=== PATIENT | male | born 1980 | race Two or more races ===

== ENCOUNTER 2022-02-15 17:22 | Inpatient (IN) | payer OTHER ==
[2022-02-15 22:37] VITALS: BMI 22.3
[2022-02-15] MEDS ORDERED: P-EPHED 60MG/TRIPROLIDI 2.5MG TABLET PO PRN (23:45)
[2022-02-15] MEDS ORDERED: NALOXONE HCL (KLOXXADO) 8 MG SPRAY NS PRN (23:45)
[2022-02-15] MEDS ORDERED: ACETAMINOPHEN 325 MG TABLET (FP) PO PRN ×2 (23:45)
[2022-02-15] MEDS ORDERED: hydrOXYzine PAMOATE 25 MG CAPSULE (FP) PO PRN (23:45)
[2022-02-15] MEDS ORDERED: MAGNESIUM HYDROX 2400MG/30ML ORAL SUSPENSION 30 ML CUP PO PRN (23:45)
[2022-02-15] MEDS ORDERED: POLYETHYLENE GLYCOL (HEALTHYLAX) 3350 17 GM PACKET PO PRN (23:45)
[2022-02-15] MEDS ORDERED: MAG HYDROX/AL HYDROX/SIMETH 30 ML UNIT-DOSE CUP PO PRN (23:45)
[2022-02-15] MEDS ORDERED: BISMUTH SUBSALICYLATE 524 MG/30 ML PO PRN (23:45)
[2022-02-15] MEDS ORDERED: guaiFENesin 200 MG/10 ML 10 ML UNIT-DOSE CUPS PO PRN (23:45)
[2022-02-15] MEDS ORDERED: LOPERAMIDE HCL 2 MG CAPSULE PO PRN (23:45)
[2022-02-15] MEDS ORDERED: IBUPROFEN 600 MG TABLET (FP) PO PRN (23:45)
[2022-02-15] MEDS ORDERED: NICOTINE POLACRILEX 2 MG GUM BUC PRN (23:45)
[2022-02-15] MEDS ORDERED: NALOXONE HCL 0.4 MG/ML VIAL IM PRN (23:45)
[2022-02-15] MEDS ORDERED: DICYCLOMINE HCL 10 MG CAPSULE PO PRN (23:45)
[2022-02-15] MEDS ORDERED: ONDANSETRON *ODT* 4 MG TABLET SL PRN (23:45)
[2022-02-15] MEDS ORDERED: MELATONIN 5 MG TABLETS PO PRN (23:45)
[2022-02-15] MEDS ORDERED: IBUPROFEN 400 MG TABLET (FP) PO PRN (23:45)
[2022-02-15] MEDS ORDERED: BENZOCAINE/MENTHOL (CHLORASEPTIC ) LOZENGE MM PRN (23:45)
[2022-02-15] MEDS ORDERED: NICOTINE 10 MG CARTRIDGE (INHALER) IH PRN (23:45)
[2022-02-16] MEDS ORDERED: methaDONE HCL 10 MG TABLET (FOR DETOX USE ONLY) PO ONE ×2 (00:01→01:45)
[2022-02-16] MEDS ORDERED: diazePAM 5 MG TABLET PO PRN (00:01)
[2022-02-16] MEDS ORDERED: cloNIDine HCL 0.1 MG TABLET PO PRN (00:01)
[2022-02-16] MEDS: diazePAM 5 MG TABLET PO SCH ×3 (05:53→18:21)
[2022-02-16 09:43] LABS: HEMATOCRIT 40.7 % (35.4-49); HEMOGLOBIN 13.2 GM/dL (11.7-16.9); MCH 28.8 pg (25.7-33.7); MCHC 32.3 g/dl (32.0-35.9); MEAN CELL VOLUME 89.1 fl (80-96); MEAN PLT VOLUME 10.5 fl (7.5-11.1); PLATELET COUNT 289 10^3/uL (134-434); RBC 4.57 M/mm3 (4.00-5.60); RDW 14.7 % (11.9-15.9); WHITE BLOOD COUNT 4.5 K/mm3 (4.0-10.0)
[2022-02-16 09:44] LABS: ALBUMIN 3.3 g/dl (3.4-5.0); CALCIUM 9.4 mg/dL (8.5-10.1)
[2022-02-16 09:48] LABS: CREATININE 0.7 mg/dL (0.55-1.3)
[2022-02-16 09:49] LABS: BILIRUBIN,TOTAL 0.8 mg/dL (0.2-1); TOT PROT 7.3 g/dl (6.4-8.2)
[2022-02-16] MEDS: METHOCARBAMOL 500 MG TABLET PO PRN (10:19)
[2022-02-16] MEDS: PRENATAL VITAMINS W/ FOLIC ACID TABLET (FP) PO SCH (10:20)
[2022-02-16] MEDS ORDERED: THIAMINE HCL 100 MG TABLET (FP) PO SCH (22:00)
[2022-02-17] MEDS: diazePAM 5 MG TABLET PO SCH (00:04)
[2022-02-17] MEDS ORDERED: diazePAM 5 MG TABLET PO SCH (06:00)
[2022-02-17] MEDS ORDERED: methaDONE HCL 10 MG TABLET (FOR DETOX USE ONLY) PO ONE (10:00)
[2022-02-17] MEDS: PRENATAL VITAMINS W/ FOLIC ACID TABLET (FP) PO SCH (10:11)
[2022-02-17] MEDS: METHOCARBAMOL 500 MG TABLET PO PRN (10:11)
[2022-02-17 13:36] VITALS: BP 112/61; PULSE 78; RESP 18; TEMP 97.8
[2022-02-18] MEDS ORDERED: diazePAM 5 MG TABLET PO SCH (06:00)
[2022-02-19] MEDS ORDERED: diazePAM 5 MG TABLET PO ONE (06:00)
[2022-02-19] MEDS ORDERED: methaDONE HCL 10 MG TABLET (FOR DETOX USE ONLY) PO ONE (10:00)
== END 2022-02-17 13:34 | disposition left against medical advice (07) | DRG 770 ==
LOC: YASAS 17:22 → Y6N 23:37
PROVIDERS: ADMIT Allergy & Immunology; ATTEND Surgery
PROC: HZ2ZZZZ Detoxification Services for Substance Abuse Treatment (ICD-10-PCS; principal; 2022-02-15)
DX: F11.23 Opioid dependence with withdrawal (principal); F10.230 Alcohol dependence with withdrawal, uncomplicated; F14.20 Cocaine dependence, uncomplicated; F13.20 Sedative, hypnotic or anxiolytic dependence, uncomplicated; F12.20 Cannabis dependence, uncomplicated; F17.210 Nicotine dependence, cigarettes, uncomplicated; Z86.69 Personal history of other diseases of the nervous system and sense organs; Z59.00 Homelessness unspecified
CPT/HCPCS: 36415; 80053; 85027; 86780; 93005; 93010; C9803-CS; U0003; U0005

== ENCOUNTER 2023-05-19 13:36 | Inpatient (IN) | payer OTHER ==
[2023-05-19 14:56] VITALS: BMI 23.4
[2023-05-19] MEDS ORDERED: guaiFENesin 600 MG TABLET.ER (FP) PO PRN (15:44)
[2023-05-19] MEDS ORDERED: ACETAMINOPHEN 325 MG TABLET (FP) PO PRN (15:44)
[2023-05-19] MEDS ORDERED: ONDANSETRON *ODT* 4 MG TABLET SL PRN (15:44)
[2023-05-19] MEDS ORDERED: MAG HYDROX/AL HYDROX/SIMETH 30 ML UNIT-DOSE CUP PO PRN (15:44)
[2023-05-19] MEDS ORDERED: BENZONATATE 200 MG CAPSULE PO PRN (15:44)
[2023-05-19] MEDS ORDERED: IBUPROFEN 400 MG TABLET (FP) PO PRN (15:44)
[2023-05-19] MEDS ORDERED: MAGNESIUM HYDROX 2400MG/30ML ORAL SUSPENSION 30 ML CUP PO PRN (15:44)
[2023-05-19] MEDS ORDERED: BISMUTH SUBSALICYLATE 524 MG/30 ML PO PRN (15:44)
[2023-05-19] MEDS ORDERED: POLYETHYLENE GLYCOL (HEALTHYLAX) 3350 17 GM PACKET PO PRN (15:44)
[2023-05-19] MEDS ORDERED: LOPERAMIDE HCL 2 MG CAPSULE PO PRN (15:44)
[2023-05-19] MEDS ORDERED: BENZOCAINE/MENTHOL (CHLORASEPTIC ) LOZENGE MM PRN (15:44)
[2023-05-19] MEDS ORDERED: DICYCLOMINE HCL 10 MG CAPSULE PO PRN (15:44)
[2023-05-19] MEDS ORDERED: NALOXONE HCL (KLOXXADO) 8 MG SPRAY NS PRN (15:44)
[2023-05-19] MEDS ORDERED: NALOXONE HCL 0.4 MG/ML VIAL IM PRN (15:44)
[2023-05-19] MEDS ORDERED: chlordiazePOXIDE HCL 25 MG CAPSULE PO PRN (15:44)
[2023-05-19] MEDS: PRENATAL VITAMINS W/ FOLIC ACID TABLET (FP) PO SCH (16:35)
[2023-05-19] MEDS: METHOCARBAMOL 500 MG TABLET PO PRN (16:35)
[2023-05-19] MEDS: chlordiazePOXIDE HCL 25 MG CAPSULE PO SCH (16:36)
[2023-05-19] MEDS ORDERED: chlordiazePOXIDE HCL 25 MG CAPSULE ONE (16:42)
[2023-05-19] MEDS ORDERED: METHOCARBAMOL 500 MG TABLET ONE (16:44)
[2023-05-19] MEDS ORDERED: PRENATAL VITAMINS W/ FOLIC ACID TABLET (FP) PO ONE (16:45)
[2023-05-19] MEDS ORDERED: BACITRACIN ZINC 15 GM TUBE TOPICAL OINTMENT TP SCH (22:00)
[2023-05-19] MEDS: BUPRENORPHINE/NALOXONE 8 MG/2 MG FILM PACKET SL SCH (22:33)
[2023-05-19] MEDS: BACITRACIN 0.9 GM PACKET TP SCH (22:34)
[2023-05-19] MEDS: THIAMINE HCL 100 MG TABLET (FP) PO SCH (22:34)
[2023-05-19] MEDS: MELATONIN 5 MG TABLETS PO SCH (22:35)
[2023-05-20] MEDS: NICOTINE 14 MG/24 HOURS TOPICAL PATCH TD SCH (10:21)
[2023-05-20 11:08] LABS: HEMATOCRIT 35.4 % (35.4-49); HEMOGLOBIN 11.6 GM/dL (11.7-16.9); MCH 30.8 pg (25.7-33.7); MCHC 32.6 g/dl (32.0-35.9); MEAN CELL VOLUME 94.5 fl (80-96); MEAN PLT VOLUME 10.2 fl (7.5-11.1); PLATELET COUNT 152 10^3/uL (134-434); RBC 3.75 M/mm3 (4.00-5.60); RDW 13.1 % (11.9-15.9); WHITE BLOOD COUNT 5.1 K/mm3 (4.0-10.0)
[2023-05-20] MEDS: FLU VACCINE (FLULAVAL) PF 60 MCG/0.5 ML SYRINGE 2023-2024 IM ONE (11:09)
[2023-05-20 12:18] LABS: CHLORIDE 111 mmol/L (98-107); POTASSIUM 3.7 mmol/L (3.5-5.1); SODIUM 144 mmol/L (136-145)
[2023-05-20 12:26] LABS: ALBUMIN 2.9 g/dl (3.4-5.0); ANION GAP 5 mmol/L (4-13); BLOOD UREA NITROGEN 14.7 mg/dL (7-18); CO2 28 mmol/L (21-32); CREATININE 0.7 mg/dL (0.55-1.3); GLUCOSE,RANDOM 122 mg/dL (74-106); SGPT/ALT 26 U/L (13-61)
[2023-05-20 12:27] LABS: CALCIUM 8.5 mg/dL (8.5-10.1)
[2023-05-20 12:28] LABS: BILIRUBIN,TOTAL 0.2 mg/dL (0.2-1); TOT PROT 5.8 g/dl (6.4-8.2)
[2023-05-20 12:29] LABS: ALK PHOS 78 U/L (45-117); SGOT/AST 17 U/L (15-37)
[2023-05-20 12:59] LABS: HIV INTERPRETATION NEGATIVE (NEGATIVE)
[2023-05-21] MEDS: chlordiazePOXIDE HCL 25 MG CAPSULE PO SCH (05:50)
[2023-05-22] MEDS ORDERED: chlordiazePOXIDE HCL 10 MG CAPSULE PO PRN
[2023-05-22] MEDS: chlordiazePOXIDE HCL 10 MG CAPSULE PO SCH (05:50)
[2023-05-22] MEDS: IBUPROFEN 600 MG TABLET (FP) PO PRN (16:39)
[2023-05-22] MEDS: hydrOXYzine PAMOATE 25 MG CAPSULE (FP) PO PRN (17:14)
[2023-05-23] MEDS: chlordiazePOXIDE HCL 10 MG CAPSULE PO SCH (05:34)
[2023-05-23 12:36] VITALS: BP 108/63; PULSE 86; RESP 17; TEMP 97.7
[2023-05-24] MEDS ORDERED: chlordiazePOXIDE HCL 10 MG CAPSULE PO ONE (05:00)
== END 2023-05-23 14:45 | disposition home or self-care (01) | DRG 773 ==
LOC: YASAS 13:36 → Y6N 17:11
PROVIDERS: ADMIT Allergy & Immunology; ATTEND Surgery
PROC: HZ2ZZZZ Detoxification Services for Substance Abuse Treatment (ICD-10-PCS; principal; 2023-05-19)
DX: F10.230 Alcohol dependence with withdrawal, uncomplicated (principal); F11.20 Opioid dependence, uncomplicated; F14.20 Cocaine dependence, uncomplicated; F12.20 Cannabis dependence, uncomplicated; F17.210 Nicotine dependence, cigarettes, uncomplicated; F33.1 Major depressive disorder, recurrent, moderate; F19.24 Other psychoactive substance dependence with psychoactive substance-induced mood disorder; R73.03 Prediabetes; Z86.19 Personal history of other infectious and parasitic diseases
CPT/HCPCS: 36415; 80053; 80305; 80307; 82947; 85027; 86780; 87389; 87635; 90686; 93005; 93010; G0008

== ENCOUNTER 2023-11-24 16:23 | Inpatient (IN) | payer OTHER ==
[2023-11-24 17:13] VITALS: BMI 25.1
[2023-11-24] MEDS ORDERED: BENZOCAINE/MENTHOL (CHLORASEPTIC ) LOZENGE MM PRN (20:49)
[2023-11-24] MEDS ORDERED: NICOTINE POLACRILEX 2 MG LOZENGE BC PRN (20:49)
[2023-11-24] MEDS ORDERED: NICOTINE POLACRILEX 2 MG GUM BUC PRN (20:49)
[2023-11-24] MEDS ORDERED: NALOXONE (NARCAN) HCL 4 MG/0.1 ML SPRAY NS PRN (20:49)
[2023-11-24] MEDS ORDERED: P-EPHED 60MG/TRIPROLIDI 2.5MG TABLET PO PRN (20:49)
[2023-11-24] MEDS ORDERED: IBUPROFEN 400 MG TABLET (FP) PO PRN (20:49)
[2023-11-24] MEDS ORDERED: IBUPROFEN 600 MG TABLET (FP) PO PRN (20:49)
[2023-11-24] MEDS ORDERED: BENZONATATE 200 MG CAPSULE PO PRN (20:49)
[2023-11-24] MEDS ORDERED: LOPERAMIDE HCL 2 MG CAPSULE PO PRN (20:49)
[2023-11-24] MEDS ORDERED: NALOXONE HCL 0.4 MG/ML VIAL IM PRN (20:49)
[2023-11-24] MEDS ORDERED: guaiFENesin 600 MG TABLET.ER (FP) PO PRN (20:49)
[2023-11-24] MEDS ORDERED: BISMUTH SUBSALICYLATE 524 MG/30 ML PO PRN (20:49)
[2023-11-24] MEDS ORDERED: POLYETHYLENE GLYCOL (HEALTHYLAX) 3350 17 GM PACKET PO PRN (20:49)
[2023-11-24] MEDS ORDERED: MAGNESIUM HYDROX 2400MG/30ML ORAL SUSPENSION 30 ML CUP PO PRN (20:49)
[2023-11-24] MEDS ORDERED: ONDANSETRON *ODT* 4 MG TABLET SL PRN (20:49)
[2023-11-24] MEDS ORDERED: MAG HYDROX/AL HYDROX/SIMETH 30 ML UNIT-DOSE CUP PO PRN (20:49)
[2023-11-24] MEDS ORDERED: ACETAMINOPHEN 325 MG TABLET (FP) PO PRN (20:49)
[2023-11-24] MEDS ORDERED: DICYCLOMINE HCL 10 MG CAPSULE PO PRN (20:49)
[2023-11-24] MEDS: THIAMINE 100 MG TABLET PO SCH (22:08)
[2023-11-24] MEDS: MELATONIN 5 MG TABLETS PO SCH (22:08)
[2023-11-25] MEDS: hydrOXYzine PAMOATE 25 MG CAPSULE (FP) PO PRN (01:29)
[2023-11-25] MEDS: METHOCARBAMOL 500 MG TABLET PO PRN (01:29)
[2023-11-25] MEDS: PRENATAL VITAMINS W/ FOLIC ACID TABLET (FP) PO SCH (10:45)
[2023-11-25 11:17] LABS: CHLORIDE 109 mmol/L (98-107); POTASSIUM 3.6 mmol/L (3.5-5.1); SODIUM 142 mmol/L (136-145)
[2023-11-25 11:18] LABS: HEMATOCRIT 33.1 % (35.4-49); HEMOGLOBIN 10.9 GM/dL (11.7-16.9); MCH 30.7 pg (25.7-33.7); MCHC 32.9 g/dl (32.0-35.9); MEAN CELL VOLUME 93.1 fl (80-96); MEAN PLT VOLUME 10.2 fl (7.5-11.1); PLATELET COUNT 149 10^3/uL (134-434); RBC 3.55 M/mm3 (4.00-5.60); RDW 13.6 % (11.9-15.9); WHITE BLOOD COUNT 4.8 K/mm3 (4.0-10.0)
[2023-11-25 11:24] LABS: CALCIUM 8.9 mg/dL (8.5-10.1)
[2023-11-25 11:25] LABS: ALBUMIN 3.7 g/dl (3.4-5.0); ANION GAP 7 mmol/L (4-13); BLOOD UREA NITROGEN 14.2 mg/dL (7-18); CO2 26 mmol/L (21-32); GLUCOSE,RANDOM 92 mg/dL (74-106)
[2023-11-25 11:28] LABS: CREATININE 0.8 mg/dL (0.55-1.3); SGOT/AST 26 U/L (15-37); SGPT/ALT 26 U/L (13-61)
[2023-11-25 11:29] LABS: BILIRUBIN,TOTAL 0.6 mg/dL (0.2-1)
[2023-11-25 11:30] LABS: TOT PROT 6.6 g/dl (6.4-8.2)
[2023-11-25 11:31] LABS: ALK PHOS 49 U/L (45-117)
[2023-11-25] MEDS: QUEtiapine FUMARATE 50 MG TABLET PO SCH (22:01)
[2023-11-26 09:16] VITALS: BP 116/72; PULSE 68; RESP 16; TEMP 97.7
== END 2023-11-26 13:43 | disposition home or self-care (01) | DRG 773 ==
LOC: YASAS 16:23 → Y6N 21:21
PROVIDERS: ADMIT Allergy & Immunology; ATTEND Family Medicine Addiction Medicine
PROC: HZ2ZZZZ Detoxification Services for Substance Abuse Treatment (ICD-10-PCS; principal; 2023-11-24)
DX: F11.20 Opioid dependence, uncomplicated (principal); F14.20 Cocaine dependence, uncomplicated; F10.20 Alcohol dependence, uncomplicated; F13.20 Sedative, hypnotic or anxiolytic dependence, uncomplicated; F17.210 Nicotine dependence, cigarettes, uncomplicated; F19.282 Other psychoactive substance dependence with psychoactive substance-induced sleep disorder; F19.24 Other psychoactive substance dependence with psychoactive substance-induced mood disorder; F22 Delusional disorders; R73.03 Prediabetes; Z86.19 Personal history of other infectious and parasitic diseases
CPT/HCPCS: 36415; 80053; 80305; 80307; 85027; 86780